=== PATIENT | female | born 1965 | race Caucasian/White ===

== ENCOUNTER → 2022-02-11 12:04 | Outpatient (CLI) | payer OTHER, SELFPAY ==
--- NOTE | ~2022-02-11 | DEXA_ITS ---
Bone Density Report Name: STEW IVEY Age: 56 Sex: Female Ethnicity: White Date of : 1965 Indication: postmenopausal; screening for osteoporosis; Referring Provider: LORNE BASSETT Study: Bone densitometry was performed. Exam Date: February 11, 2022 Accession number: [id number] Bone Density: Region BMD T-score Z-score Classification AP Spine (L1-L4) 1.119 0.7 1.8 Normal Femoral Neck (Left) 0.854 0.0 1.1 Normal Total Hip (Left) 1.047 0.9 1.6 Normal Femoral Neck (Right) 0.816 -0.3 0.8 Normal Total Hip (Right) 0.988 0.4 1.1 Normal Total Hip Mean 1.018 0.7 1.4 Normal World Health Organization criteria for BMD impression classify patients as: Normal (T-score at or above -1.0), Osteopenia (T-score between -1.0 and -2.5), or Osteoporosis (T-score at or below -2.5). 10-year Fracture Risk: FRAX not reported because: All T-scores for Spine Total, Hip Total, Femoral Neck at or above -1.0 Clinical Information Provided by Patient: Has used the following medications: Vitamin D, MULT VIT Patient maximum height was 66 Menopause Age: 56 Drinks caffeinated beverages Onset of menses at age 12 Number of children 2 Impression: The patient has normal bone mass. Discussion: BONE DENSITY IS ABOVE THE MINIMUM DESIRABLE LEVEL AT ALL SKELETAL SITES TESTED. This patient?s bone mineral density is above the minimum desirable level (T-score -1.0 or better) at all sites measured. The patient should follow a healthful lifestyle (good nutrition with adequate calcium and vitamin D, and appropriate weight-bearing exercise). Follow-Up: Consider repeating this study in 5 years or sooner if there is some new clinical indication. Reported by: ELIESER on 02/11/2022 12:25:00 PM. Reviewed, dictated and finalized at location [facility]
== END ==
PROVIDERS: Visit Provider Obstetrics & Gynecology Gynecology
DX: Z78.0 Asymptomatic menopausal state (principal)
CPT/HCPCS: 77080

== ENCOUNTER 2024-03-14 06:11 | Day surgery (SDC) | payer OTHER, SELFPAY ==
[2024-02-16 08:21] VITALS: BMI 25.7
[2024-02-28 14:25] VITALS: BMI 25.6
[2024-03-14 07:17] VITALS: BP 125/72; PULSE 76; RESP 16; TEMP 37; O2SAT 100; BMI 25.7
[2024-03-14] MEDS: LACTATED RINGERS 1,000 ML 150 ML IV CONT (07:30)
--- NOTE | 2024-03-14 07:31 | P.PNAN_ITS ---
Anes - Initial Pre Proc Eval Procedure: Operation Date: 03/14/24 08:30 Proposed Procedures p Diagnostic Colonoscopy - Edu Mreida MD Date/Time: 03/14/24 07:31 Surgeon: Edu Merida MD Pre Op Diagnosis: Other Fecal Abnormalities Patient Data Age: 58 Gender: F Height: 1.68 m Weight: 72.4 kg Last Vital Signs Temp 37.0 C 03/14/24 07:17 Pulse 76 03/14/24 07:17 Resp 16 03/14/24 07:17 BP 125/72 03/14/24 07:17 Pulse Ox 100 03/14/24 07:17 O2 Del Method Room Air 03/14/24 07:17 Allergies Allergy/AdvReac Type Severity Reaction Status Date / Time No Known Allergies Allergy Verified 03/14/24 07:02 Home Medications Medication Instructions Recorded Confirmed Type atorvastatin 20 mg tablet 20 mg PO DAILY 02/28/24 03/14/24 History ergocalciferol (vitamin D2) 1,250 1,250 mcg PO WEEKLY 02/28/24 03/14/24 History mcg (50,000 unit) capsule magnesium 500 mg tablet 500 mg PO DAILY 02/28/24 03/14/24 History multivitamin with minerals-folic 1 tablet PO DAILY 02/28/24 03/14/24 History acid 0.4 mg tablet Patient hx anesthesia problems: none Family hx anesthesia problems: none Results Review: All pre-operative results and documents have been reviewed as part of the pre- operative evaluation. PMFSH Past Medical History Medical History (Updated 03/14/24 @ 07:31 by Nate Lynch DO) Hyperlipidemia Family History Family History (Updated 06/18/16 @ 23:21 by DOCTOR UNKNOWN) Mother Patient's mother is in good health Father Patient's father is in good health Sibling Patient's sister is in good health Patient's brother is in good health Grandparent Family history of Alzheimer's disease Diabetes mellitus Social History Social History Smoking status: Never smoker Alcohol intake: current Drinks per week: 2 Substance use type: does not use Living arrangements: with family Spiritual care concerns: No Anes - Eval Final PreProcedure Day of Procedure 03/14/24 07:31 Patient weight: overweight Heart: regular rate and rhythm Lungs: clear to auscultation Airway: Mallampati scale class II Neurological: alert and oriented Last oral intake: >/= 8 hours ASA classification: II Emergent: no Anesthetic plan: proceed Anesthesia type and monitoring: general GIVS and standard monitoring Results Review: All pre-operative results and documents have been reviewed as part of the pre- operative evaluation. Informed Consent: The patient's anesthetic plan and its attendant risks and benefits were discussed with the patient/family/POA. Questions were solicited and answers provided to the satisfaction of the patient/family/POA.
--- NOTE | 2024-03-14 08:15 | PM.HPGS ---
History of Present Illness History of Present Illness Consent: Risks, benefits, and alternatives have been discussed and questions answered. Patient agrees to proceed with procedure. Chief complaint: Positive Cologuard test Narrative: Joann Peterson is a 58 year old female presents for colonoscopy. Patient was found to have a positive screening Cologuard test. Patient reports her current weight appetite and bowel movements are normal. She denies abdominal pain. Patient has had no bleeding. Family history is noncontributory. Review of Systems Review of Systems: Review of systems is noncontributory. PMFSH Past Medical History Medical History (Updated 03/14/24 @ 08:17 by Edu Merida MD) Hyperlipidemia Family History Family History (Updated 06/18/16 @ 23:21 by DOCTOR UNKNOWN) Mother Patient's mother is in good health Father Patient's father is in good health Sibling Patient's sister is in good health Patient's brother is in good health Grandparent Family history of Alzheimer's disease Diabetes mellitus Social History Social History Smoking status: Never smoker Alcohol intake: current Drinks per week: 2 Substance use type: does not use Living arrangements: with family Spiritual care concerns: No Meds Home Medications and Allergies Home Medications Medication Instructions Recorded Confirmed Type atorvastatin 20 mg tablet 20 mg PO DAILY 02/28/24 03/14/24 History ergocalciferol (vitamin D2) 1,250 1,250 mcg PO WEEKLY 02/28/24 03/14/24 History mcg (50,000 unit) capsule magnesium 500 mg tablet 500 mg PO DAILY 02/28/24 03/14/24 History multivitamin with minerals-folic 1 tablet PO DAILY 02/28/24 03/14/24 History acid 0.4 mg tablet Allergies Allergy/AdvReac Type Severity Reaction Status Date / Time No Known Allergies Allergy Verified 03/14/24 07:02 Vital Signs Vital Signs - 24 hr 03/14/24 07:17 Temperature 98.6 F Pulse Rate 76 Respiratory Rate 16 Blood Pressure 125/72 Pulse Oximetry 100 Oxygen Delivery Room Air Exam Narrative: Physical exam reveals patient to be alert. Vital signs stable. HEENT exam is unremarkable. Patient is anicteric. Lungs are clear to auscultation and percussion. Heart is extra sounds. Abdomen bowel sounds are present soft nontender with no organomegaly. Digital external rectal exam is normal. Assessment and Plan Assessment and plan (1) Positive colorectal cancer screening using Cologuard test: Code(s): R19.5 - Other fecal abnormalities Status: Acute Assessment and Plan: Patient presents for screening colonoscopy. Positive Cologuard test was noted. Further recommendations may be given after endoscopy
[2024-03-14 08:51] VITALS: BP 98/46; PULSE 67; RESP 14; O2SAT 99
[2024-03-14 09:01] VITALS: BP 115/67; PULSE 72; RESP 14; O2SAT 99
[2024-03-14 09:11] VITALS: BP 122/63; PULSE 55; RESP 14; O2SAT 100
--- NOTE | 2024-03-14 13:33 | WPDANESPN ---
Anes - Prog Note Post-Op Date/Time: 03/14/24 13:33 Cardiovascular status: normal Respiratory status: normal Airway patency: baseline Mental status: baseline Post-Op hydration status: normal Vital Signs: Last Vital Signs Temp 37.0 C 03/14/24 07:17 Pulse 55 L 03/14/24 09:11 Resp 14 03/14/24 09:11 BP 122/63 03/14/24 09:11 Pulse Ox 100 03/14/24 09:11 O2 Del Method Room Air 03/14/24 09:11 Pain Score (VAS): 0 I/O: Intake & Output 03/13/24 03/14/24 03/14/24 23:59 07:59 15:59 Intake Total 850 Balance 850 Post-procedural complaints: none Patient Feedback: Patient satisfied with anesthetic care. Other Findings: Patient vital signs back to baseline. Patient denies nausea and vomiting. Patient's pain under control. Patient OK for discharge.
== END 2024-03-14 09:35 | disposition home or self-care (01) ==
PROVIDERS: PCP Obstetrics & Gynecology Gynecology; Visit Provider Internal Medicine Gastroenterology
PROC: 0DJD8ZZ Inspection of Lower Intestinal Tract, Via Natural or Artificial Opening Endoscopic (ICD-10-PCS; CPT 45378; principal; 2024-03-14 08:30)
DX: R19.5 Other fecal abnormalities (principal); D12.5 Benign neoplasm of sigmoid colon; K64.8 Other hemorrhoids
CPT/HCPCS: 45385

== ENCOUNTER 2024-03-14 07:56 | Outpatient (NON) | payer OTHER, SELFPAY | END 2024-03-14 07:57 | disposition home or self-care (01) | PROVIDERS: PCP Obstetrics & Gynecology Gynecology; Visit Provider Internal Medicine Gastroenterology | DX: R19.5 Other fecal abnormalities (principal) | CPT/HCPCS: 88305 ==

== ENCOUNTER 2024-12-10 08:09 | Outpatient (CLI) | payer OTHER, SELFPAY ==
[2024-12-10 13:22] LABS: Mean Corpuscular HGB Conc 31.8 g/dl (32-36); Mean Corpuscular Hemoglobin 28.6 pg (26-34); Mean Platelet Volume 11.2 fl (7.4-10.4); Platelet Count Result 250 k/mm3 (150-375); Red Blood Count 4.89 M/mm3 (4.2-5.4); Red Cell Distribution Width 12.8 % (11.5-14.5)
[2024-12-10 13:52] LABS: Alanine Aminotransferase 48 U/L (6-35); Albumin Level 4.4 g/dL (3.5-5.1); Alkaline Phosphatase 82 U/L (38-126); Anion Gap 7 mmol/L (4-12); Aspartate Amino Transferase 71 U/L (14-36); Bilirubin,Total 1.2 mg/dL (0.2-1.3); Blood Urea Nitrogen 16 mg/dL (7-17); Calcium 9.5 mg/dL (8.4-10.2); Carbon Dioxide 29 mmol/L (22-30); Chloride 103 mmol/L (98-107); Estimated Glomerular Filt Rate > 60; Glucose 81 mg/dL (65-110); Potassium 4.1 mmol/L (3.4-5.0); Sodium 139 mmol/L (137-145)
--- OUTSIDE RECORDS SUMMARY | 2024-12-13 11:50 | XMS_ITS | Clinical Summary ---
Author Organization [facility] Address [address] [place] [address] Care Team Providers Care Crm Technical Lead Name Role Phone Vicenta Hernandez MD Primary Care Provider [phone] Aft, Frances Zuleta MD PhD Unavailable [phone] Allergies No known active allergies Medications atorvastatin (LIPITOR) 20 mg tabletIndicatio ns:hyperlipidem ia Take 1 tablet (20 mg total) by mouth nightly 3 9 Active ergocalciferol (VITAMIN D) 50,000 unit capsule Take 1 capsule (50,000 Units total) by mouth 2 (two) times a week supplement 3 9 Active multivitamin (MULTI-DAY ORAL) Take 1 tablet by mouth nightly Active ibuprofen (ibuprofen) 200 mg tab/capIndicati ons:Pain Take 800 mg by mouth every 6 (six) hours as needed for pain Active acetaminophen (TYLENOL) 500 mg tabletIndicatio ns:Pain Take 1 tablet (500 mg total) by mouth every 6 (six) hours as needed for pain 30 tablet 0 Active ibuprofen (ADVIL,MOTRIN) 400 mg tablet Take 1 tablet (400 mg total) by mouth every 6 (six) hours as needed for pain 30 tablet 0 Active HYDROcodone-reji taminophen (NORCO) 5-325 mg per tabletIndicatio ns:Pain Take 1 tablet by mouth every 6 (six) hours as needed for pain 5 tablet 0 Active Additional Information Patient not taking.Reported on 02/20/2020 Active Problems Problem Noted Date Diagnosed Date 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 History of breast cancer 10/31/2019 Abnormal findings on diagnostic imaging of cal t 10/31/2019 Surgical History Surgery Date Site/Laterality Comments BREAST BIOPSY 11/01/2019 Right WISDOM TOOTH EXTRACTION BREAST LUMPECTOMY Medical History Medical History Date Comments Radial scar of breast Overweight Family History Medical History Relation Name Comments Melanoma Mother Relation Name Status Comments Mother Social History Tobacco Use Types Packs/Day Years Used Date Smoking Tobacco: Never Smokeless Tobacco: Never Comments No Sex and Gender Information Value Date Recorded Sex Assigned at Not on file Legal Sex Female 6:03 PM ROOFING PLANT SUPERVISOR Gender Identity Not on file Sexual Orientation Straight 10/29/2019 2: 46 PM ROOFING PLANT SUPERVISOR Obstetrics History Last Filed Vital Signs Vital Sign Reading Time Taken Comments Blood Pressure 130/77 10/16/2023 6:10 PM ROOFING PLANT SUPERVISOR Pulse 66 10/16/2023 6:10 PM ROOFING PLANT SUPERVISOR Temperature 36.5 ??C (97.7 ??F) 10/16/2023 6:10 PM CS T Respiratory Rate 16 10/16/2023 6:10 PM ROOFING PLANT SUPERVISOR Oxygen Saturation 97% 10/16/2023 6:10 PM ROOFING PLANT SUPERVISOR Inhaled Oxygen Concentration - - Weight 76.7 kg (169 lb) 10/16/2023 6:10 PM ROOFING PLANT SUPERVISOR Height 167.6 cm (5' 6 ) 10/16/2023 6:10 PM ROOFING PLANT SUPERVISOR Body Mass Index 27.28 10/16/2023 6:10 PM ROOFING PLANT SUPERVISOR Plan of Treatment Health Maintenance Due Date Last Done Comments Cervical Cancer Screening 1965 Colon Cancer Screening-Colonoscopy 1965 Depression Screening 1965 Hepatitis C Screening 1965 Hepatitis B Screening 1983 Regular Well Visit/Exam 18-64 1983 Zoster Vaccine (1 of 2) 2015 DTaP/Tdap/Td Vaccine (2 - Td or Tdap) 05/11/2020 05/11/2010 Influenza Vaccine (#1) 2024 Breast Cancer Screening-Mammogram 12/29/2024 12/29/2023, 12/14/2022, 11/11/2021, Additional history exists Pneumococcal vaccine <65 Aged Out No longer eligible based on patient's age to complete this topic Procedures Procedure Name Priority Date/Time Associated Diagnosis Comments SCREENING MAMMOGRAM BILATERAL W GUZMAN Schedule Routine, Read Routine (OP Routine) 12/29/2023 7:22 AM ROOFING PLANT SUPERVISOR Screening mammogram, encounter for from Last 3 Months or Most Recently Relevant to Health Maintenance Results * Screening Mammogram Bilateral W Guzman (12/29/2023 7:22 AM ROOFING PLANT SUPERVISOR) Anatomical Region Laterality Modality Breast Bilateral Mammography Narrative 12/29/2023 11:14 AM ROOFING PLANT SUPERVISOR Mammogram Technique: Bilateral Digital Breast Tomosynthesis, Bilateral C-view 2D Screening mammogram. ??Views obtained: ??bilateral craniocaudal and bilateral mediolateral oblique. ??Computer Aided Detection was performed. Mammogram Findings: The present examination has been compared to prior imaging studies performed at [facility] on 09/24/2020, 11/11/2021 and 12/14/2022. There are scattered areas of fibroglandular density. There is no suspicious abnormality in either breast. Impression: There is no mammographic evidence of malignancy. Annual screening mammography is recommended. OVERALL FINAL ASSESSMENT: BI-RADS CATEGORY 1: ??Negative. Procedure Note Bety Prieto MD - 12/29/2023 Mammogram Technique: Bilateral Digital Breast Tomosynthesis, Bilateral C-view 2D Screening mammogram. Views obtained: bilateral craniocaudal and bilateral mediolateral oblique. Computer Aided Detection was performed. Mammogram Findings: The present examination has been compared to prior imaging studies performed at [facility] on 09/24/2020, 11/11/2021 and 12/14/2022. There are scattered areas of fibroglandular density. There is no suspicious abnormality in either breast. Impression: There is no mammographic evidence of malignancy. Annual screening mammography is recommended. OVERALL FINAL ASSESSMENT: BI-RADS CATEGORY 1: Negative. us Self Screening Mammogram IMG MAMMO PROCEDURES Fi nal Result from Last 3 Months or Most Recently Relevant to Health Maintenance Insurance [facility] Address: [place] [address] [facility] Address: [place] [address] [facility]O Address: [facility] [address] [place] [address] Care Teams Crm Technical Lead Relationship Specialty Start Date End Date Vicenta Hernandez MD [address] [place] [address] PCP - General Family Medicine 10/09/19 Aft, Frances Zuleta MD PhD [address] [place] [address] Surgeon Surgical Oncology 02/05/20
--- OUTSIDE RECORDS SUMMARY | 2024-12-13 11:50 | XMS_ITS | Referral Summary ---
Author Organization [facility] Address [address] [place] [address] Care Team Providers Care Product Management Intern Name Role Phone Vicenta Hernandez MD Primary Care Provider [phone] Aft, Frances Zuleta MD PhD Unavailable [phone] Allergies No known active allergies Medications atorvastatin [...] Abnormal findings on diagnostic imaging of cal kauffman 10/31/2019 Social History Tobacco Use Types Packs/Day Years Used Date Smoking Tobacco: Never Smokeless Tobacco: Never Comments No Sex and Gender Information Value Date Recorded Sex Assigned at Not on file Legal Sex Female 6:03 PM FIELD GEOLOGIST Gender Identity Not on file Sexual Orientation Straight 10/29/2019 2: 46 PM FIELD GEOLOGIST Last Filed Vital Signs Vital Sign Reading Time Taken Comments Blood Pressure 130/77 10/16/2023 6:10 PM FIELD GEOLOGIST Pulse 66 10/16/2023 6:10 PM FIELD GEOLOGIST Temperature 36.5 ??C (97.7 ??F) 10/16/2023 6:10 PM CS T Respiratory Rate 16 10/16/2023 6:10 PM FIELD GEOLOGIST Oxygen Saturation 97% 10/16/2023 6:10 PM FIELD GEOLOGIST Inhaled Oxygen Concentration - - Weight 76.7 kg (169 lb) 10/16/2023 6:10 PM FIELD GEOLOGIST Height 167.6 cm (5' 6 ) 10/16/2023 6:10 PM FIELD GEOLOGIST Body Mass Index 27.28 10/16/2023 6:10 PM FIELD GEOLOGIST Plan of Treatment Not on file Procedures Procedure Name Priority Date/Time Associated Diagnosis Comments SCREENING MAMMOGRAM BILATERAL W GUZMAN Schedule Routine, Read Routine (OP Routine) 12/29/2023 7:22 AM FIELD GEOLOGIST Screening mammogram, encounter for from Last 3 Months or Most Recently Relevant to Health Maintenance Results * Screening Mammogram Bilateral W Guzman (12/29/2023 7:22 AM FIELD GEOLOGIST) Anatomical Region Laterality Modality Breast Bilateral Mammography Narrative 12/29/2023 11:14 AM FIELD GEOLOGIST Mammogram Technique: Bilateral Digital Breast Tomosynthesis, Bilateral C-view 2D Screening mammogram. ??Views obtained: ??bilateral craniocaudal and bilateral mediolateral oblique. ??Computer Aided Detection was performed. Mammogram Findings: The present examination has been compared to prior imaging studies performed at [facility] on 09/24/2020, 11/11/2021 and 12/14/2022. There are [...] compared to prior imaging studies performed at [facility] on 09/24/2020, 11/11/2021 and 12/14/2022. There are scattered areas of fibroglandular density. There is no suspicious abnormality in either breast. Impression: There is no mammographic evidence of malignancy. Annual screening mammography is recommended. OVERALL FINAL ASSESSMENT: BI-RADS CATEGORY 1: Negative. us Self Screening Mammogram IMG MAMMO PROCEDURES Fi nal Result from Last 3 Months or Most Recently Relevant to Health Maintenance Insurance [facility] [employer] [facility] [employer] [employer] [facility] [employer] Care Teams Product Management Intern Relationship Specialty Start Date End Date Vicenta Hernandez MD [address] [place] [address] PCP - General Family Medicine 10/09/19 Aft, Frances Zuleta MD PhD [address] [place] [address] Surgeon Surgical Oncology 02/05/20
== END 2024-12-10 08:10 | disposition home or self-care (01) ==
PROVIDERS: PCP Obstetrics & Gynecology Gynecology
DX: Z01.818 Encounter for other preprocedural examination (principal); Z01.812 Encounter for preprocedural laboratory examination; Z01.810 Encounter for preprocedural cardiovascular examination; Z01.811 Encounter for preprocedural respiratory examination; G56.01 Carpal tunnel syndrome, right upper limb
CPT/HCPCS: 36415; 80053; 85027

== ENCOUNTER 2024-12-10 08:49 | Outpatient (CLI) | payer OTHER, SELFPAY ==
--- NOTE | 2024-12-10 09:13 | ECG_ITS ---
Test Date: 2024-12-10 09:19:11 Measurements Intervals [place] Rate: 57 P: 31 WI: 212 QRS: 46 QRSD: 89 T: 58 QT: 402 QTc: 393 Interpretive Statements SINUS BRADYCARDIA WITH FIRST DEGREE AV BLOCK No previous ECG available for comparison Electronically Signed On 12-10-2024 18:04:39 ADHESIVE PRIMER by Win Haro M.D.
== END 2024-12-10 08:50 | disposition home or self-care (01) ==
LOC: ANHCARD 09:01
PROVIDERS: Visit Provider Orthopaedic Surgery
DX: Z01.818 Encounter for other preprocedural examination (principal); I44.0 Atrioventricular block, first degree; R00.1 Bradycardia, unspecified; G56.01 Carpal tunnel syndrome, right upper limb; Z01.810 Encounter for preprocedural cardiovascular examination; Z01.811 Encounter for preprocedural respiratory examination; Z01.812 Encounter for preprocedural laboratory examination
CPT/HCPCS: 93005

== ENCOUNTER 2025-03-05 08:09 | Outpatient (CLI) | payer OTHER, SELFPAY ==
--- OUTSIDE RECORDS SUMMARY | 2025-03-05 08:17 | XMS_ITS | Referral Summary ---
Author Organization [facility] Address [address] [place] [address] Care Team Providers Care Supervisor Accounts Receivable Name Role Phone Vicenta Hernandez MD Primary Care Provider Aft, Frances Zuleta MD PhD Unavailable Encounters Date Type Department Care Team Description 02/05/2025 11:18 AM CDT - 02/05/2025 11:59 PM CDT Hospital Encounter [facility] Breast [facility] [address] [place] [address] Screening mammogram, encounter for Discharge Disposition: Discharge to home or self care from Last 3 Months Allergies No known active allergies Medications atorvastatin [...] 10/31/2019 Abnormal findings on diagnostic imaging of breas t 10/31/2019 Social History Tobacco Use Types Packs/Day Years Used Date Smoking Tobacco: Never Smokeless Tobacco: Never Comments No Sex and Gender Information Value Date Recorded Sex Assigned at Not on file Legal Sex Female 6:03 PM WORK ORDER SORTING CLERK Gender Identity Not on file Sexual Orientation Straight 10/29/2019 2: 46 PM WORK ORDER SORTING CLERK Last Filed Vital Signs Vital Sign Reading Time Taken Comments Blood Pressure 130/77 10/16/2023 6:10 PM WORK ORDER SORTING CLERK Pulse 66 10/16/2023 6:10 PM WORK ORDER SORTING CLERK Temperature 36.5 C (97.7 F) 10/16/2023 6:10 PM WORK ORDER SORTING CLERK Respiratory Rate 16 10/16/2023 6:10 PM WORK ORDER SORTING CLERK Oxygen Saturation 97% 10/16/2023 6:10 PM WORK ORDER SORTING CLERK Inhaled Oxygen Concentration - - Weight 76.7 kg (169 lb) 10/16/2023 6:10 PM WORK ORDER SORTING CLERK Height 167.6 cm (5' 6 ) 10/16/2023 6:10 PM WORK ORDER SORTING CLERK Body Mass Index 27.28 10/16/2023 6:10 PM WORK ORDER SORTING CLERK Plan of Treatment Not on file Procedures Procedure Name Priority Date/Time Associated Diagnosis Comments SCREENING MAMMOGRAM BILATERAL W GUZMAN Schedule Routine, Read Routine (OP Routine) 02/05/2025 11:31 AM CDT Screening mammogram, encounter for from Last 3 Months Results * Screening Mammogram Bilateral W Guzman (02/05/2025 11:31 AM CDT) Anatomical Region Laterality Modality Breast Bilateral Mammography Narrative 02/05/2025 12:04 PM CDT Mammogram Technique: Bilateral Digital Breast Tomosynthesis, Bilateral C-view 2D Screening mammogram. Views obtained: bilateral craniocaudal and bilateral mediolateral oblique. Computer Aided Detection was performed. Mammogram Findings: The present examination has been compared to prior imaging studies performed at [facility] on 11/11/2021, 12/14/2022 and 12/29/2023. There are scattered areas of fibroglandular density. There is no suspicious abnormality in either breast. Impression: There is no mammographic evidence of malignancy. Annual screening mammography is recommended. OVERALL FINAL ASSESSMENT: BI-RADS CATEGORY 1: Negative. Procedure Note Myriam Maria MD - 02/05/2025 Mammogram Technique: Bilateral Digital Breast Tomosynthesis, Bilateral C-view 2D Screening mammogram. Views obtained: bilateral craniocaudal and bilateral mediolateral oblique. Computer Aided Detection was performed. Mammogram Findings: The present examination has been compared to prior imaging studies performed at [facility] on 11/11/2021, 12/14/2022 and 12/29/2023. There are scattered areas of fibroglandular density. There is no suspicious abnormality in either breast. Impression: There is no mammographic evidence of malignancy. Annual screening mammography is recommended. OVERALL FINAL ASSESSMENT: BI-RADS CATEGORY 1: Negative. us Self Screening Mammogram IMG MAMMO PROCEDURES Fi nal Result from Last 3 Months Insurance [facility] [employer] PL[employer] Care Teams Supervisor Accounts Receivable Relationship Specialty Start Date End Date Vicenta Hernandez MD [address] [place] [address] PCP - General Family Medicine 10/09/19 Aft, Frances Zuleta MD PhD [address] [place] [address] Surgeon Surgical Oncology 02/05/20
--- OUTSIDE RECORDS SUMMARY | 2025-03-05 08:17 | XMS_ITS | Clinical Summary ---
Author Organization [facility] Address [address] [place] [address] Care Team Providers Care Airplane Cover Maker Name Role Phone Vicenta Hernandez MD Primary Care Provider [phone] Aft, Frances Zuleta MD PhD Unavailable [phone] Allergies No known active allergies Medications atorvastatin [...] on diagnostic imaging of [place] [facility] 10/31/2019 Encounters Date Type Department Care Team Description 02/05/2025 11:18 AM CDT - 02/05/2025 11:59 PM CDT Hospital Encounter [facility] Advanced Medicine Breast Imaging [facility] ([facility]) [address] [place] [address] Screening mammogram, encounter for Discharge Disposition: Discharge to home or self care from Last 3 Months Surgical History Surgery Date Site/Laterality Comments BREAST [...] on file Legal Sex Female 6:03 PM TRAFFIC SIGNAL REPAIRER Gender Identity Not on file Sexual Orientation Straight 10/29/2019 2: 46 PM TRAFFIC SIGNAL REPAIRER Obstetrics History Last Filed Vital Signs Vital Sign Reading Time Taken Comments Blood Pressure 130/77 10/16/2023 6:10 PM TRAFFIC SIGNAL REPAIRER Pulse 66 10/16/2023 6:10 PM TRAFFIC SIGNAL REPAIRER Temperature 36.5 C (97.7 F) 10/16/2023 6:10 PM TRAFFIC SIGNAL REPAIRER Respiratory Rate 16 10/16/2023 6:10 PM TRAFFIC SIGNAL REPAIRER Oxygen Saturation 97% 10/16/2023 6:10 PM TRAFFIC SIGNAL REPAIRER Inhaled Oxygen Concentration - - Weight 76.7 kg (169 lb) 10/16/2023 6:10 PM TRAFFIC SIGNAL REPAIRER Height 167.6 cm (5' 6 ) 10/16/2023 6:10 PM TRAFFIC SIGNAL REPAIRER Body Mass Index 27.28 10/16/2023 6:10 PM TRAFFIC SIGNAL REPAIRER Plan of Treatment Health Maintenance Due Date Last Done Comments Cervical Cancer Screening 1965 Colon Cancer Screening-Colonoscopy 1965 Depression Screening 1965 Hepatitis C Screening 1965 Hepatitis B Screening 1983 Regular Well Visit/Exam 18-64 1983 Zoster Vaccine (1 of 2) 2015 DTaP/Tdap/Td Vaccine (2 - Td or Tdap) 05/11/2020 05/11/2010 Influenza Vaccine (Season Ended) 2025 Breast Cancer Screening-Mammogram 02/05/2026 02/05/2025, 12/29/2023, 12/14/2022, Additional history exists Pneumococcal vaccine <65 Aged [...] to prior imaging studies performed at [facility] on 11/11/2021, 12/14/2022 and 12/29/2023. There are [...] to prior imaging studies performed at [facility] on 11/11/2021, 12/14/2022 and 12/29/2023. There are scattered areas of fibroglandular density. There is no suspicious abnormality in either breast. Impression: There is no mammographic evidence of malignancy. Annual screening mammography is recommended. OVERALL FINAL ASSESSMENT: BI-RADS CATEGORY 1: Negative. us Self Screening Mammogram IMG MAMMO PROCEDURES Fi nal Result from Last 3 Months Insurance [employer] CHOICE PLUS [facility] CHOICE PLUS Care Teams Airplane Cover Maker Relationship Specialty Start Date End Date Vicenta Hernandez MD [address] [place] [address] PCP - General Family Medicine 10/09/19 Aft, Frances Zuleta MD PhD [address] [place] [address] Surgeon Surgical Oncology 02/05/20
[2025-03-05 11:10] LABS: Hematocrit 44.3 % (37.0-47.0); Hemoglobin 14.1 g/dL (12.0-15.0); Mean Corpuscular HGB Conc 31.8 g/dl (32-36); Mean Corpuscular Hemoglobin 28.4 pg (26-34); Mean Corpuscular Volume 89.3 fl (80-100); Mean Platelet Volume 11.1 fl (7.4-10.4); Platelet Count Result 242 k/mm3 (150-375); Red Blood Count 4.96 M/mm3 (4.2-5.4); Red Cell Distribution Width 12.5 % (11.5-14.5); White Blood Count 5.1 K/mm3 (4.5-10.0)
[2025-03-05 11:40] LABS: Alanine Aminotransferase 62 U/L (6-35); Albumin Level 4.3 g/dL (3.5-5.1); Alkaline Phosphatase 78 U/L (38-126); Anion Gap 9 mmol/L (4-12); Aspartate Amino Transferase 47 U/L (14-36); Bilirubin,Total 0.9 mg/dL (0.2-1.3); Blood Urea Nitrogen 22 mg/dL (7-17); Calcium 9.4 mg/dL (8.4-10.2); Carbon Dioxide 26 mmol/L (22-30); Chloride 105 mmol/L (98-107); Estimated Glomerular Filt Rate > 60; Glucose 86 mg/dL (65-110); Potassium 4.1 mmol/L (3.4-5.0); Sodium 140 mmol/L (137-145)
== END 2025-03-05 08:10 | disposition home or self-care (01) ==
LOC: ANHGOSHLAB 08:11
DX: Z01.818 Encounter for other preprocedural examination (principal); Z01.812 Encounter for preprocedural laboratory examination; Z01.810 Encounter for preprocedural cardiovascular examination; Z01.811 Encounter for preprocedural respiratory examination; G56.02 Carpal tunnel syndrome, left upper limb
CPT/HCPCS: 36415; 80053; 85027